=== PATIENT | female | born 1975 | race Caucasian/White ===

== ENCOUNTER 2023-12-29 15:03 | Inpatient (IN) | payer BC ==
[~2023-12-29] VITALS: Ht 165.1 cm; Wt 79.4 kg
[~2023-12-29 15:03] MED LIST: CLON0.1T PO; HYDR50TA39 PO; LANTUSUD SUBCUT; LOSA50TA41 PO; METO-539 PO; TRIA1TAB94 MT; [UNRECOGNIZED DRUG - CODE] PO
[2023-12-29 16:02] LABS: BASOPHILS % 0.7 % (0.0-2.0); EOSINOPHILS % 2.3 % (0.0-5.0); HEMATOCRIT. 34.7 % (36.0-48.0); LYMPHOCYTES % 27.6 % (20.0-50.0); MEAN CORPUSCULAR HEMOGLOBIN 27.6 pg (28.0-32.0); MEAN CORPUSCULAR HGB CONC 34.6 g/dL (31.0-37.0); MEAN PLATELET VOLUME 8.2 fl (7.4-10.4); MONOCYTES % 7.8 % (2.0-8.0); NEUTROPHILS % 61.6 % (40.0-76.0); PLATELET 315 x1000/uL (130-400); POTASSIUM 4.6 mEq/L (3.5-5.1); RED BLOOD CELL COUNT 4.34 mill/uL (4.2-5.4); RED CELL DISTRIBUTION WIDTH 14.1 % (11.6-14.6); WHITE BLOOD COUNT 9.2 x1000/uL (4.5-11.0)
[2023-12-29 16:03] LABS: CALCIUM 8.4 mg/dL (8.7-10.4)
[2023-12-29 16:08] LABS: CREATININE 2.9 mg/dL (0.6-1.0)
[2023-12-29 16:12] LABS: INR 0.9; PROTHROMBIN TIME 10.2 sec (9.6-11.0)
[2023-12-29] MEDS ORDERED: HYDRALAZINE 20MG/ML VIAL IV ONE (18:15)
[2023-12-29 18:38] LABS: ALANINE AMINOTRANSFERASE 13 IU/L (10-49); ALBUMIN 3.1 g/dL (3.2-4.8); ASPARTATE AMINOTRANSFERASE 15 IU/L (<34)
[2023-12-29 18:39] LABS: BILIRUBIN TOTAL 0.4 mg/dL (0.1-1.0); PROTEIN TOTAL 5.8 g/dL (6.0-8.3)
[2023-12-29 18:43] LABS: BILIRUBIN DIRECT < 0.1 mg/dL (<=3.0)
[2023-12-29 19:06] LABS: CLARITY URINE CLEAR (CLEAR); COLOR URINE YELLOW (YELLOW); GLUCOSE URINE 2+ (NEGATIVE); KETONES URINE NEGATIVE (NEGATIVE); LEUKOCYTE ESTERASE URINE NEGATIVE (NEGATIVE); NITRITE URINE NEGATIVE (NEGATIVE); OCCULT BLOOD URINE NEGATIVE (NEGATIVE); PH URINE 6.5 (4.5-8.0); PROTEIN URINE 4+ (NEGATIVE); SPECIFIC GRAVITY URINE 1.016 (1.005-1.030); UROBILINOGEN URINE 0.2 E.U./dL (0.2-1.0)
[2023-12-29 19:43] LABS: BACTERIA URINE 1+; RBC URINE NONE SEEN /hpf (0-2); SQUAMOUS EPITHELIAL CELL URINE FEW /lpf (RARE/1+)
[2023-12-29] MEDS ORDERED: IPRATROPIUM/ALBUTEROL 0.5-3(2.5)MG/3ML NEB HHN PRN (20:15)
[2023-12-29] MEDS ORDERED: DEXTROSE 50% WATER 50ML SYRINGE IV PRN (20:15)
[2023-12-29] MEDS: SODIUM CHLORIDE 0.9% 1,000 ML IV ONE (21:37)
[2023-12-29] MEDS ORDERED: HYDRALAZINE 20MG/ML VIAL IV PRN (21:45)
[2023-12-29] MEDS: HYDRALAZINE HCL 50MG TABLET PO SCH (22:00)
[2023-12-29] MEDS: HYDRALAZINE 20MG/ML VIAL IV NR (22:11)
[2023-12-29] MEDS: BLOOD SUGAR DIAGNOSTIC STRIP TEST SCH (22:15)
[2023-12-29] MEDS: LOSARTAN 50 MG TABLET PO NR (22:15)
[2023-12-29] MEDS: INSULIN LISPRO 100 UNITS/ML SUBCUT SCH (22:31)
[2023-12-29 22:44] LABS: IRON 64 ug/dL (50-170)
[2023-12-29 22:46] LABS: PHOSPHORUS 3.6 mg/dL (2.5-4.9)
[2023-12-29 22:47] LABS: TOTAL IRON BINDING CAPACITY 283 ug/dl (250-425)
[2023-12-29] MEDS ORDERED: ENOXAPARIN 30MG/0.3ML SYR SUBCUT SCH (23:00)
[2023-12-29] MEDS: INSULIN GLARGINE 100 UNITS/ML SUBCUT SCH (23:55)
[2023-12-30 02:23] LABS: CREATINE KINASE MB FRACTION 2.3 ng/mL (0.5-3.6); TROPONIN I HIGH SENSITIVITY 21 ng/L (3.0-34)
[2023-12-30 02:25] LABS: CREATINE KINASE 134 IU/L (34-145)
[2023-12-30 03:34] LABS: FERRITIN 32 ng/mL (10-291); FOLIC ACID (FOLATE) SERUM 13.07 ng/mL (>5.38); VITAMIN B12 SERUM 528 pg/mL (211-911)
[2023-12-30 03:55] LABS: HCG SCREEN NEGATIVE
[2023-12-30 04:23] LABS: CLARITY URINE CLOUDY (CLEAR); COLOR URINE YELLOW (YELLOW); GLUCOSE URINE 2+ (NEGATIVE); KETONES URINE NEGATIVE (NEGATIVE); LEUKOCYTE ESTERASE URINE TRACE (NEGATIVE); NITRITE URINE POSITIVE (NEGATIVE); OCCULT BLOOD URINE NEGATIVE (NEGATIVE); PH URINE 6.5 (4.5-8.0); PROTEIN URINE 4+ (NEGATIVE); SPECIFIC GRAVITY URINE 1.018 (1.005-1.030); UROBILINOGEN URINE 0.2 E.U./dL (0.2-1.0)
[2023-12-30 04:26] LABS: SODIUM URINE RANDOM 72 mEq/L
[2023-12-30 04:32] LABS: *AMPHETAMINES SCREEN URINE NEGATIVE (NEGATIVE)
[2023-12-30 04:33] LABS: *BARBITURATES SCREEN URINE NEGATIVE (NEGATIVE); *BENZODIAZEPINES SCREEN URINE NEGATIVE (NEGATIVE); *COCAINE SCREEN URINE NEGATIVE (NEGATIVE); CANNABINOID URINE SCREEN NEGATIVE (NEGATIVE); ECSTASY MDMA SCREEN URINE NEGATIVE (NEGATIVE); METHADONE URINE SCREEN NEGATIVE (NEGATIVE); OPIATES URINE SCREEN NEGATIVE (NEGATIVE); PHENCYCLIDINE URINE SCREEN NEGATIVE (NEGATIVE)
[2023-12-30 05:09] LABS: OSMOLALITY URINE 390 mOsm/kg (500-850)
[2023-12-30 06:34] LABS: SQUAMOUS EPITHELIAL CELL URINE 2+ /lpf (RARE/1+)
[2023-12-30 06:41] LABS: BACTERIA URINE 4+; RBC URINE 0-2 /hpf (0-2)
[2023-12-30] MEDS: ACETAMINOPHEN 325MG TABLET PO PRN (08:02)
[2023-12-30] MEDS ORDERED: CLONIDINE 0.1MG TABLET PO PRN (08:15)
[2023-12-30 08:32] LABS: HEMATOCRIT 30.6 % (36.0-48.0); HEMOGLOBIN 10.5 g/dL (12.0-16.0); MEAN CORPUSCULAR HEMOGLOBIN 27.3 pg (28.0-32.0); MEAN CORPUSCULAR HGB CONC 34.3 g/dL (31.0-37.0); MEAN CORPUSCULAR VOLUME 79.5 fL (81.0-99.0); PLATELET 276 x1000/uL (130-400); RED BLOOD CELL COUNT 3.85 mill/uL (4.2-5.4); RED CELL DISTRIBUTION WIDTH 13.9 % (11.6-14.6); WHITE BLOOD COUNT 9.6 x1000/uL (4.5-11.0)
[2023-12-30 08:39] LABS: CARBON DIOXIDE 20 mEq/L (21-32); CHLORIDE 110 mEq/L (98-107); POTASSIUM 4.3 mEq/L (3.5-5.1); SODIUM 136 mEq/L (136-145)
[2023-12-30 08:40] LABS: CALCIUM 8.3 mg/dL (8.7-10.4)
[2023-12-30 08:45] LABS: CREATININE 2.7 mg/dL (0.6-1.0); GLUCOSE 196 mg/dL (70-105); UREA NITROGEN BLOOD 31 mg/dL (9-23)
[2023-12-30] MEDS: METOPROLOL TARTRATE 25MG TABLET PO SCH (09:40)
[2023-12-30] MEDS: LOSARTAN 25 MG TABLET PO SCH (09:50)
[2023-12-30] MEDS ORDERED: HYDRALAZINE HCL 50MG TABLET PO SCH (16:00)
[2023-12-30] MEDS: CLONIDINE 0.1MG TABLET PO SCH (16:45)
[2023-12-30] MEDS: SODIUM CHLORIDE 0.45% 1,000 ML IV SCH (16:46)
[2023-12-30 18:00] VITALS: BP_SYST 132; BP_SYST 142; BP_DIAS 76; BP_DIAS 80; PULSE 82; RESP 16; RESP 17; TEMP 36.6404; O2SAT 99
[2023-12-30 20:00] VITALS: BP 155/83; PULSE 78; RESP 16; O2SAT 100
[2023-12-30] MEDS: HYDRALAZINE HCL 25MG TABLET PO NR (20:17)
[2023-12-30] MEDS: ATORVASTATIN CALCIUM 40MG TABLET PO SCH (20:24)
[2023-12-30] MEDS: CEFTRIAXONE 1GM/50ML 50 ML IV SCH (20:24)
[2023-12-30] MEDS: FAMOTIDINE 20MG TABLET PO SCH (20:25)
[2023-12-31] VITALS (10 sets, daily range): BP systolic 118–167; BP diastolic 68–86; PULSE 59–71; RESP 9–22; TEMP 36.33624–36.55848; O2SAT 97–99
[2023-12-31] MEDS: HYDRALAZINE HCL 50MG TABLET PO SCH (04:01)
[2023-12-31 06:10] LABS: BASOPHILS % 0.6 % (0.0-2.0); EOSINOPHILS % 2.1 % (0.0-5.0); HEMATOCRIT. 27.7 % (36.0-48.0); HEMOGLOBIN. 9.4 g/dL (12.0-16.0); LYMPHOCYTES % 31.3 % (20.0-50.0); MEAN CORPUSCULAR HEMOGLOBIN 27.5 pg (28.0-32.0); MEAN PLATELET VOLUME 8.8 fl (7.4-10.4); MONOCYTES % 7.4 % (2.0-8.0); NEUTROPHILS % 58.6 % (40.0-76.0); PLATELET 256 x1000/uL (130-400); RED BLOOD CELL COUNT 3.43 mill/uL (4.2-5.4); RED CELL DISTRIBUTION WIDTH 14.3 % (11.6-14.6); WHITE BLOOD COUNT 8.4 x1000/uL (4.5-11.0)
[2023-12-31 06:20] LABS: CARBON DIOXIDE 22 mEq/L (21-32); CHLORIDE 109 mEq/L (98-107); POTASSIUM 4.3 mEq/L (3.5-5.1); SODIUM 136 mEq/L (136-145)
[2023-12-31 06:21] LABS: CALCIUM 8.1 mg/dL (8.7-10.4)
[2023-12-31 06:25] LABS: CREATININE 2.9 mg/dL (0.6-1.0); GLUCOSE 123 mg/dL (70-105)
[2023-12-31 06:26] LABS: TRIGLYCERIDE 203 mg/dL (0-150); UREA NITROGEN BLOOD 35 mg/dL (9-23)
[2023-12-31 06:27] LABS: LDL CHOLESTEROL 330 mg/dL (5-100); THYROID STIMULATING HORMONE 2.96 uIU/mL (0.55-4.78)
[2023-12-31 06:28] LABS: CHOLESTEROL 402 mg/dL (<200); HDL CHOLESTEROL 37 mg/dL (>65); PHOSPHORUS 4.3 mg/dL (2.5-4.9)
[2023-12-31] MEDS: FUROSEMIDE 20MG/2ML VIAL IVP NR (09:04)
[2023-12-31 09:11] LABS: COMPLEMENT C3 122 mg/dL (82-167); COMPLEMENT C4 39 mg/dL (12-38)
[2023-12-31] MEDS: HYDRALAZINE HCL 25MG TABLET PO SCH (18:02)
[2023-12-31] MEDS: ATORVASTATIN CALCIUM 40MG TABLET PO SCH (20:51)
[2024-01-01] VITALS (8 sets, daily range): BP systolic 117–153; BP diastolic 75–85; PULSE 57–64; RESP 0–18; TEMP 36.114–37.05852; O2SAT 96–98
[2024-01-01 07:51] LABS: BASOPHILS % 0.6 % (0.0-2.0); CARBON DIOXIDE 20 mEq/L (21-32); CHLORIDE 109 mEq/L (98-107); EOSINOPHILS % 2.7 % (0.0-5.0); HEMATOCRIT. 30.2 % (36.0-48.0); HEMOGLOBIN. 10.1 g/dL (12.0-16.0); LYMPHOCYTES % 29.4 % (20.0-50.0); MEAN CORPUSCULAR HGB CONC 33.6 g/dL (31.0-37.0); MEAN CORPUSCULAR VOLUME 80.4 fL (81.0-99.0); MEAN PLATELET VOLUME 9.1 fl (7.4-10.4); MONOCYTES % 6.2 % (2.0-8.0); NEUTROPHILS % 61.1 % (40.0-76.0); PLATELET 250 x1000/uL (130-400); POTASSIUM 4.3 mEq/L (3.5-5.1); RED BLOOD CELL COUNT 3.76 mill/uL (4.2-5.4); RED CELL DISTRIBUTION WIDTH 14.3 % (11.6-14.6); SODIUM 135 mEq/L (136-145); WHITE BLOOD COUNT 7.3 x1000/uL (4.5-11.0)
[2024-01-01 07:52] LABS: CALCIUM 8.3 mg/dL (8.7-10.4)
[2024-01-01 07:56] LABS: CREATININE 2.9 mg/dL (0.6-1.0)
[2024-01-01 07:57] LABS: GLUCOSE 164 mg/dL (70-105); UREA NITROGEN BLOOD 33 mg/dL (9-23)
[2024-01-01 07:59] LABS: PHOSPHORUS 4.7 mg/dL (2.5-4.9)
[2024-01-01 13:07] LABS: ANTI-NUCLEAR ANTIBODIES DIRECT Negative (Negative)
[2024-01-01] MEDS ORDERED: CLONIDINE 0.1MG TABLET PO SCH (21:00)
== END 2024-01-01 18:41 | disposition home or self-care (01) | DRG 314 ==
LOC: ER 15:03 → EDBEDREQ 17:43 → EDBEDREQTM 19:27 → EDBEDREQSVC 19:27 → 5EST 12-30 17:15
PROVIDERS: ADMIT Family Medicine Adult Medicine; ATTEND Family Medicine Adult Medicine
DX: I95.9 Hypotension, unspecified (principal); N17.0 Acute kidney failure with tubular necrosis; I16.1 Hypertensive emergency; N39.0 Urinary tract infection, site not specified; I50.20 Unspecified systolic (congestive) heart failure; N18.4 Chronic kidney disease, stage 4 (severe); I13.0 Hypertensive heart and chronic kidney disease with heart failure and stage 1 through stage 4 chronic kidney disease, or unspecified chronic kidney disease; R00.1 Bradycardia, unspecified; Z20.822 Contact with and (suspected) exposure to COVID-19; E11.22 Type 2 diabetes mellitus with diabetic chronic kidney disease; J45.909 Unspecified asthma, uncomplicated; E78.00 Pure hypercholesterolemia, unspecified; D64.9 Anemia, unspecified; E88.09 Other disorders of plasma-protein metabolism, not elsewhere classified; Z79.4 Long term (current) use of insulin; Z87.440 Personal history of urinary (tract) infections; Z79.899 Other long term (current) drug therapy
CPT/HCPCS: 36415; 71045; 76700; 80048; 80061; 80076; 80305; 81003; 82550; 82553; 82607; 82728; 82746; 82962; 83036; 83540; 83550; 83605; 83735; 83880; 83930; 83935; 84100; 84145; 84300; 84443; 84484; 84703; 85025; 85027; 85379; 86038; 86160; 87077; 87186; 87426; 93005; 93306; 93970; 99285; J0360; J0696; J1815; J1940; J7030

== ENCOUNTER 2024-05-18 21:16 | Inpatient (IN) | payer BC ==
[~2024-05-18] VITALS: Ht 170.2 cm; Wt 75.6 kg
[2024-05-18 23:02] LABS: CLARITY URINE CLEAR (CLEAR); COLOR URINE YELLOW (YELLOW); GLUCOSE URINE 3+ (NEGATIVE); KETONES URINE NEGATIVE (NEGATIVE); LEUKOCYTE ESTERASE URINE NEGATIVE (NEGATIVE); NITRITE URINE NEGATIVE (NEGATIVE); OCCULT BLOOD URINE NEGATIVE (NEGATIVE); PH URINE 6.5 (4.5-8.0); PROTEIN URINE 4+ (NEGATIVE); SPECIFIC GRAVITY URINE 1.017 (1.005-1.030); UROBILINOGEN URINE 0.2 E.U./dL (0.2-1.0)
[2024-05-18 23:43] LABS: BACTERIA URINE 1+; RBC URINE 0-2 /hpf (0-2); SQUAMOUS EPITHELIAL CELL URINE 1+ /lpf (RARE/1+); WBC URINE 0-2 /hpf (0-2)
[2024-05-18 23:45] LABS: BASOPHILS % 0.9 % (0.0-2.0); EOSINOPHILS % 2.6 % (0.0-5.0); HEMATOCRIT. 33.6 % (36.0-48.0); HEMOGLOBIN. 11.1 g/dL (12.0-16.0); LYMPHOCYTES % 25.6 % (20.0-50.0); MEAN CORPUSCULAR HEMOGLOBIN 27.3 pg (28.0-32.0); MEAN CORPUSCULAR HGB CONC 33.2 g/dL (31.0-37.0); MEAN CORPUSCULAR VOLUME 82.2 fL (81.0-99.0); MEAN PLATELET VOLUME 9.4 fl (7.4-10.4); MONOCYTES % 7.2 % (2.0-8.0); NEUTROPHILS % 63.7 % (40.0-76.0); PLATELET 298 x1000/uL (130-400); RED BLOOD CELL COUNT 4.08 mill/uL (4.2-5.4); RED CELL DISTRIBUTION WIDTH 13.8 % (11.6-14.6); WHITE BLOOD COUNT 7.6 x1000/uL (4.5-11.0)
[2024-05-19] LABS: CHLORIDE 106 mEq/L (98-107); POTASSIUM 4.9 mEq/L (3.5-5.1); SODIUM 134 mEq/L (136-145)
[2024-05-19 00:01] LABS: CARBON DIOXIDE 21 mEq/L (21-32)
[2024-05-19 00:06] LABS: GLUCOSE 228 mg/dL (70-105); TROPONIN I HIGH SENSITIVITY 6 ng/L (3.0-34); UREA NITROGEN BLOOD 43 mg/dL (9-23)
[2024-05-19 00:08] LABS: ALANINE AMINOTRANSFERASE 12 IU/L (10-49); ALBUMIN 3.1 g/dL (3.2-4.8); ASPARTATE AMINOTRANSFERASE 12 IU/L (<34); BILIRUBIN TOTAL 0.3 mg/dL (0.1-1.0); PROTEIN TOTAL 5.7 g/dL (6.0-8.3)
[2024-05-19 00:17] LABS: BILIRUBIN DIRECT < 0.1 mg/dL (<=3.0); CREATININE 4.4 mg/dL (0.6-1.0)
[2024-05-19] MEDS ORDERED: IPRATROPIUM/ALBUTEROL 0.5-3(2.5)MG/3ML NEB HHN PRN (00:45)
[2024-05-19] MEDS ORDERED: ACETAMINOPHEN 325MG TABLET PO PRN (00:45)
[2024-05-19] MEDS ORDERED: DEXTROSE 50% WATER 50ML SYRINGE IV PRN (00:45)
[2024-05-19] MEDS ORDERED: CLONIDINE 0.1MG TABLET PO PRN (00:45)
[2024-05-19] MEDS ORDERED: ONDANSETRON HCL 4MG/2ML INJ IV PRN (00:45)
[2024-05-19] MEDS ORDERED: DOCUSATE SODIUM 100MG CAPSULE PO PRN (00:45)
[2024-05-19 01:24] LABS: IRON 60 ug/dL (50-170)
[2024-05-19 01:27] LABS: PHOSPHORUS 4.4 mg/dL (2.5-4.9); TOTAL IRON BINDING CAPACITY 354 ug/dl (250-425)
[2024-05-19] MEDS: NIFEDIPINE XL 60MG TAB PO SCH (01:34)
[2024-05-19 02:16] LABS: PARTIAL THROMBOPLASTIN TIME 30.9 sec (23.4-31.0); PROTHROMBIN TIME 10.7 sec (9.6-11.0)
[2024-05-19 02:55] VITALS: BP 107/77; PULSE 79; RESP 18; TEMP 36.4
[2024-05-19 04:42] VITALS: BP 106/70; PULSE 81; RESP 20; TEMP 36.3; O2SAT 99
[2024-05-19] MEDS ORDERED: ROSU20CA (06:42)
[2024-05-19] MEDS ORDERED: DAPA5TAB PO (06:42)
[2024-05-19] MEDS ORDERED: EZET10TA81 (06:42)
[2024-05-19] MEDS ORDERED: METO25TA6 PO (06:42)
[2024-05-19 08:00] VITALS: BP 119/54; PULSE 90; RESP 18; TEMP 36.4; O2SAT 100
[2024-05-19] MEDS: BLOOD SUGAR DIAGNOSTIC STRIP TEST SCH (08:27)
[2024-05-19 08:31] LABS: CREATINE KINASE MB FRACTION 2.1 ng/mL (0.5-3.6)
[2024-05-19] MEDS: FAMOTIDINE 20MG TABLET PO SCH (08:37)
[2024-05-19] MEDS: ENOXAPARIN 30MG/0.3ML SYR SUBCUT SCH (08:38)
[2024-05-19] MEDS: INSULIN LISPRO 100 UNITS/ML SUBCUT SCH (09:22)
[2024-05-19 12:00] VITALS: BP 101/64; PULSE 94; RESP 18; TEMP 37.1; O2SAT 98
[2024-05-19] MEDS: ACETAMINOPHEN 325MG TABLET PO PRN (12:46)
[2024-05-19 16:00] VITALS: BP 123/62; PULSE 87; RESP 18; TEMP 36.3; O2SAT 96
[2024-05-19 17:39] LABS: CREATINE KINASE MB FRACTION 1.7 ng/mL (0.5-3.6)
[2024-05-19] MEDS: SODIUM CHLORIDE 0.45% 1,000 ML IV SCH (18:49)
[2024-05-19 20:20] VITALS: BP 131/59; PULSE 94; RESP 19; TEMP 36.1
[2024-05-19] MEDS: DILTIAZEM HCL 30MG TABLET PO SCH (21:05)
[2024-05-19] MEDS: ATORVASTATIN CALCIUM 40MG TABLET PO SCH (21:06)
[2024-05-20] VITALS: BP 127/60; PULSE 95; RESP 19; TEMP 36.2; O2SAT 96
[2024-05-20 04:00] VITALS: BP 139/65; PULSE 94; RESP 20; TEMP 36.2; O2SAT 96
[2024-05-20 07:11] LABS: BASOPHILS % 0.7 % (0.0-2.0); EOSINOPHILS % 2.8 % (0.0-5.0); HEMATOCRIT. 30.4 % (36.0-48.0); HEMOGLOBIN. 10.3 g/dL (12.0-16.0); LYMPHOCYTES % 35.7 % (20.0-50.0); MEAN CORPUSCULAR HEMOGLOBIN 27.6 pg (28.0-32.0); MEAN CORPUSCULAR HGB CONC 33.7 g/dL (31.0-37.0); MEAN CORPUSCULAR VOLUME 81.9 fL (81.0-99.0); MEAN PLATELET VOLUME 9.5 fl (7.4-10.4); MONOCYTES % 7.3 % (2.0-8.0); NEUTROPHILS % 53.5 % (40.0-76.0); PLATELET 267 x1000/uL (130-400); RED BLOOD CELL COUNT 3.72 mill/uL (4.2-5.4); RED CELL DISTRIBUTION WIDTH 14.1 % (11.6-14.6); WHITE BLOOD COUNT 7.1 x1000/uL (4.5-11.0)
[2024-05-20 07:41] LABS: POTASSIUM 4.3 mEq/L (3.5-5.1)
[2024-05-20 07:43] LABS: CALCIUM 8.4 mg/dL (8.7-10.4)
[2024-05-20 07:47] LABS: CREATININE 4.8 mg/dL (0.6-1.0); T4 FREE 1.25 ng/dL (0.89-1.76); THYROID STIMULATING HORMONE 4.83 uIU/mL (0.55-4.78)
[2024-05-20 08:00] VITALS: BP 142/69; PULSE 92; RESP 20; TEMP 36.6; O2SAT 99
[2024-05-20 09:10] LABS: COMPLEMENT C3 119 mg/dL (82-167); COMPLEMENT C4 39 mg/dL (12-38)
[2024-05-20 12:00] VITALS: BP 159/77; PULSE 96; RESP 18; TEMP 36.7; O2SAT 100
[2024-05-20 13:06] LABS: ANTI-NUCLEAR ANTIBODIES DIRECT Negative (Negative)
[2024-05-20] MEDS: DILTIAZEM HCL 30MG TABLET PO SCH (14:00)
[2024-05-20 16:00] VITALS: BP 150/78; PULSE 84; RESP 18; TEMP 36.6; O2SAT 100
[2024-05-20 20:00] VITALS: BP 144/69; PULSE 97; RESP 19; TEMP 36.8; O2SAT 96
[2024-05-21] VITALS: BP 123/71; PULSE 98; RESP 18; TEMP 36.3; O2SAT 95
[2024-05-21 04:00] VITALS: BP 144/76; PULSE 91; RESP 18; TEMP 36.4; O2SAT 98
[2024-05-21 08:00] VITALS: BP 162/92; PULSE 98; RESP 20; TEMP 36.5; O2SAT 100
[2024-05-21 09:00] LABS: BASOPHILS % 0.7 % (0.0-2.0); EOSINOPHILS % 2.6 % (0.0-5.0); HEMATOCRIT. 30.6 % (36.0-48.0); HEMOGLOBIN. 10.2 g/dL (12.0-16.0); LYMPHOCYTES % 26.7 % (20.0-50.0); MEAN CORPUSCULAR HEMOGLOBIN 27.3 pg (28.0-32.0); MEAN CORPUSCULAR HGB CONC 33.3 g/dL (31.0-37.0); MEAN CORPUSCULAR VOLUME 81.8 fL (81.0-99.0); MEAN PLATELET VOLUME 9.7 fl (7.4-10.4); MONOCYTES % 8.9 % (2.0-8.0); NEUTROPHILS % 61.1 % (40.0-76.0); PLATELET 251 x1000/uL (130-400); RED BLOOD CELL COUNT 3.73 mill/uL (4.2-5.4); RED CELL DISTRIBUTION WIDTH 13.9 % (11.6-14.6); WHITE BLOOD COUNT 7.7 x1000/uL (4.5-11.0)
[2024-05-21 09:06] LABS: POTASSIUM 4.4 mEq/L (3.5-5.1)
[2024-05-21 09:08] LABS: CALCIUM 8.3 mg/dL (8.7-10.4)
[2024-05-21 09:12] LABS: CREATININE 4.9 mg/dL (0.6-1.0)
[2024-05-21 12:00] VITALS: BP 140/85; PULSE 97; RESP 20; TEMP 36.1; O2SAT 99
[2024-05-21] MEDS ORDERED: DILT60TA4 PO (12:09)
[2024-05-21] MEDS: DILTIAZEM HCL 60MG TABLET PO SCH (14:37)
[2024-05-21 16:00] VITALS: BP 141/73; PULSE 82; RESP 21; TEMP 36.7; O2SAT 99
[2024-05-21 16:48] VITALS: BP 162/92; PULSE 98; TEMP 97.7; O2SAT 100
== END 2024-05-21 17:25 | disposition home or self-care (01) | DRG 683 ==
LOC: ER 21:16 → 5WST 05-19 00:25 → 7WST 05-19 02:10
PROVIDERS: ADMIT Family Medicine Adult Medicine; ATTEND Family Medicine Adult Medicine
DX: N17.9 Acute kidney failure, unspecified (principal); E87.1 Hypo-osmolality and hyponatremia; N18.4 Chronic kidney disease, stage 4 (severe); D63.1 Anemia in chronic kidney disease; E11.22 Type 2 diabetes mellitus with diabetic chronic kidney disease; E11.319 Type 2 diabetes mellitus with unspecified diabetic retinopathy without macular edema; E78.1 Pure hyperglyceridemia; I12.9 Hypertensive chronic kidney disease with stage 1 through stage 4 chronic kidney disease, or unspecified chronic kidney disease; R70.0 Elevated erythrocyte sedimentation rate; M32.9 Systemic lupus erythematosus, unspecified; J45.909 Unspecified asthma, uncomplicated; Z79.82 Long term (current) use of aspirin; Z79.899 Other long term (current) drug therapy; Z91.199 Patient's noncompliance with other medical treatment and regimen due to unspecified reason
CPT/HCPCS: 36415; 71045; 80048; 80061; 80076; 81003; 82550; 82553; 82728; 82962; 83036; 83540; 83550; 83735; 83880; 84100; 84439; 84443; 84484; 85025; 86038; 86160; 93005; 93970; 99285; J1650; J1815; J7030

== ENCOUNTER 2024-08-23 09:03 | Inpatient (IN) | payer BC ==
[~2024-08-23] VITALS: Ht 167.6 cm; Wt 67.3 kg
[2024-08-23] VITALS (17 sets, daily range): BP systolic 130–179; BP diastolic 67–88; PULSE 4–98; RESP 12–29; TEMP 35.6–36.9474; O2SAT 99–100
[~2024-08-23 09:03] MED LIST changes: -CLON0.1T PO; +DAPA5TAB PO; +INSU100I28 SQ; +LABE200T9 PO; -LANTUSUD SUBCUT; -LOSA50TA41 PO; -METO-539 PO; +NIFE-33 PO; -TRIA1TAB94 MT
[2024-08-23 09:22] LABS: BASOPHILS % 0.6 % (0.0-2.0); EOSINOPHILS % 3.3 % (0.0-5.0); HEMATOCRIT. 25.3 % (36.0-48.0); HEMOGLOBIN. 8.4 g/dL (12.0-16.0); LYMPHOCYTES % 28.2 % (20.0-50.0); MEAN CORPUSCULAR HEMOGLOBIN 28.2 pg (28.0-32.0); MEAN CORPUSCULAR HGB CONC 33.1 g/dL (31.0-37.0); MEAN CORPUSCULAR VOLUME 85.4 fL (81.0-99.0); MEAN PLATELET VOLUME 8.5 fl (7.4-10.4); MONOCYTES % 7.2 % (2.0-8.0); NEUTROPHILS % 60.7 % (40.0-76.0); PLATELET 224 x1000/uL (130-400); RED BLOOD CELL COUNT 2.96 mill/uL (4.2-5.4); RED CELL DISTRIBUTION WIDTH 16.6 % (11.6-14.6); WHITE BLOOD COUNT 4.9 x1000/uL (4.5-11.0)
[2024-08-23 09:31] LABS: CHLORIDE 112 mEq/L (98-107); POTASSIUM 5.4 mEq/L (3.5-5.1); SODIUM 141 mEq/L (136-145)
[2024-08-23 09:32] LABS: CALCIUM 7.9 mg/dL (8.7-10.4); CARBON DIOXIDE 18 mEq/L (21-32)
[2024-08-23 09:37] LABS: GLUCOSE 178 mg/dL (70-105); UREA NITROGEN BLOOD 49 mg/dL (9-23)
[2024-08-23 09:39] LABS: TROPONIN I HIGH SENSITIVITY 9 ng/L (3.0-34)
[2024-08-23 09:53] LABS: CREATININE 7.9 mg/dL (0.6-1.0)
[2024-08-23 11:13] LABS: PHOSPHORUS 6.9 mg/dL (2.5-4.9)
[2024-08-23] MEDS: HYDRALAZINE 20MG/ML VIAL IV SCH (11:36)
[2024-08-23 12:10] LABS: TROPONIN I HIGH SENSITIVITY 8 ng/L (3.0-34)
[2024-08-23] MEDS ORDERED: ACETAMINOPHEN 325MG TABLET PO PRN (15:45)
[2024-08-23] MEDS ORDERED: ONDANSETRON HCL 4MG/2ML INJ IV PRN (15:45)
[2024-08-23] MEDS ORDERED: FURO40TA5 PO (15:52)
[2024-08-23] MEDS ORDERED: DEXTROSE 50% WATER 50ML SYRINGE IV PRN (16:00)
[2024-08-23] MEDS ORDERED: IPRATROPIUM/ALBUTEROL 0.5-3(2.5)MG/3ML NEB HHN PRN (16:00)
[2024-08-23] MEDS: SODIUM ZIRCONIUM CYCLOSILICATE 10GM/PACKET PO NR (16:59)
[2024-08-23] MEDS: HYDRALAZINE 20MG/ML VIAL IV PRN (17:00)
[2024-08-23] MEDS: BLOOD SUGAR DIAGNOSTIC STRIP TEST SCH (17:16)
[2024-08-23] MEDS: INSULIN LISPRO 100 UNITS/ML SUBCUT SCH (17:16)
[2024-08-23] MEDS: ATORVASTATIN CALCIUM 40MG TABLET PO SCH (22:22)
[2024-08-23] MEDS: ENOXAPARIN 30MG/0.3ML SYR SUBCUT SCH (22:28)
[2024-08-23] MEDS: LABETALOL HCL 200MG TABLET PO SCH (22:29)
[2024-08-23] MEDS: HYDRALAZINE HCL 50MG TABLET PO SCH (23:07)
[2024-08-24] VITALS (10 sets, daily range): BP systolic 126–150; BP diastolic 56–78; PULSE 79–93; RESP 11–15; TEMP 36.3–37.4; O2SAT 94–100
[2024-08-24 08:04] LABS: BASOPHILS % 0.7 % (0.0-2.0); EOSINOPHILS % 3.1 % (0.0-5.0); HEMATOCRIT. 23.6 % (36.0-48.0); HEMOGLOBIN. 7.9 g/dL (12.0-16.0); LYMPHOCYTES % 23.1 % (20.0-50.0); MEAN CORPUSCULAR HEMOGLOBIN 27.9 pg (28.0-32.0); MEAN CORPUSCULAR HGB CONC 33.3 g/dL (31.0-37.0); MEAN CORPUSCULAR VOLUME 83.9 fL (81.0-99.0); MEAN PLATELET VOLUME 9.2 fl (7.4-10.4); MONOCYTES % 9.2 % (2.0-8.0); NEUTROPHILS % 63.9 % (40.0-76.0); PLATELET 189 x1000/uL (130-400); RED BLOOD CELL COUNT 2.82 mill/uL (4.2-5.4); RED CELL DISTRIBUTION WIDTH 16.4 % (11.6-14.6); WHITE BLOOD COUNT 5.9 x1000/uL (4.5-11.0)
[2024-08-24 08:12] LABS: CARBON DIOXIDE 24 mEq/L (21-32); CHLORIDE 104 mEq/L (98-107); POTASSIUM 3.7 mEq/L (3.5-5.1); SODIUM 139 mEq/L (136-145)
[2024-08-24 08:13] LABS: CALCIUM 7.8 mg/dL (8.7-10.4)
[2024-08-24 08:17] LABS: GLUCOSE 82 mg/dL (70-105)
[2024-08-24 08:18] LABS: UREA NITROGEN BLOOD 22 mg/dL (9-23)
[2024-08-24 08:20] LABS: PHOSPHORUS 4.3 mg/dL (2.5-4.9)
[2024-08-24 08:24] LABS: CREATININE 4.7 mg/dL (0.6-1.0)
[2024-08-24] MEDS ORDERED: [UNRECOGNIZED DRUG - OTHER] PO SCH (09:00)
[2024-08-24] MEDS ORDERED: MEDICATION NOT ON FORMULARY EA (Dapagliflozin Propanediol (Farxiga) 1 TAB) PO SCH (09:00)
[2024-08-24] MEDS ORDERED: EZETIMIBE PO SCH (09:00)
[2024-08-24] MEDS ORDERED: SIMVASTATIN PO SCH (09:00)
[2024-08-24] MEDS: EZETIMIBE 10MG TABLET PO SCH (09:05)
[2024-08-24] MEDS: PANTOPRAZOLE SODIUM 40 MG/VIAL IV SCH (09:05)
[2024-08-24] MEDS: FUROSEMIDE 40MG TABLET PO SCH (09:06)
[2024-08-24] MEDS: NIFEDIPINE XL 30MG TAB PO SCH (09:06)
[2024-08-24] MEDS ORDERED: EPOETIN ALFA-EPBX 4,000 UNIT/ML VIAL SUBCUT SCH (21:00)
== END 2024-08-24 17:25 | disposition home or self-care (01) | DRG 291 ==
LOC: ER 09:03 → 5EST 10:27 → EDBEDREQ 10:29 → EDBEDREQTM 10:29 → ENRESERV 11:25
PROVIDERS: ADMIT Family Medicine Adult Medicine; ATTEND Family Medicine Adult Medicine
PROC: 5A1D70Z Performance of Urinary Filtration, Intermittent, Less than 6 Hours Per Day (ICD-10-PCS; principal; 2024-08-23)
PROC: 5A09357 Assistance with Respiratory Ventilation, Less than 24 Consecutive Hours, Continuous Positive Airway Pressure (ICD-10-PCS; 2024-08-23)
DX: I13.2 Hypertensive heart and chronic kidney disease with heart failure and with stage 5 chronic kidney disease, or end stage renal disease (principal); I50.33 Acute on chronic diastolic (congestive) heart failure; J96.01 Acute respiratory failure with hypoxia; N18.6 End stage renal disease; I16.1 Hypertensive emergency; E87.20 Acidosis, unspecified; E87.5 Hyperkalemia; J45.909 Unspecified asthma, uncomplicated; E11.22 Type 2 diabetes mellitus with diabetic chronic kidney disease; D50.9 Iron deficiency anemia, unspecified; E78.2 Mixed hyperlipidemia; E11.319 Type 2 diabetes mellitus with unspecified diabetic retinopathy without macular edema; E83.39 Other disorders of phosphorus metabolism; Z99.2 Dependence on renal dialysis; Z79.4 Long term (current) use of insulin
CPT/HCPCS: 36415; 71045; 80048; 82962; 83036; 83735; 83880; 84100; 84484; 85025; 90935; 93005; 94070; 94660; 94664; 99291; J0360; J0885; J1650; J2470